=== PATIENT | male | born 1970 | race Caucasian/White ===

== ENCOUNTER 2018-08-18 10:44 | Outpatient (REF) | payer OTHER, SELFPAY ==
[2018-08-18 21:13] LABS: Anion Gap 8.4 mmol/L (3-11); BUN 21 mg/dL (7-18); CO2 26.6 mmol/L (21.0-32.0); Chloride 100 mmol/L (98-107); Glucose 261 mg/dL (70-100); Potassium 4.6 mmol/L (3.5-5.1); Sodium 135 mmol/L (136-145)
== END 2018-08-18 11:04 ==
LOC: NCHCN 10:44
PROVIDERS: PCP Nurse Practitioner Family; Visit Provider Nurse Practitioner Family
DX: E11.9 Type 2 diabetes mellitus without complications (principal); E03.9 Hypothyroidism, unspecified; I10 Essential (primary) hypertension
CPT/HCPCS: 80048; 84443

== ENCOUNTER 2019-08-10 09:44 | Outpatient (REF) | payer OTHER, SELFPAY ==
[2019-08-10 21:31] LABS: ALT 50 U/L (16-63); AST 27 U/L (15-37); Albumin 3.8 g/dL (3.4-5.0); Alkaline Phosphatase 100 U/L (46-116); Anion Gap 9.6 mmol/L (3-11); BUN 15 mg/dL (7-18); Bilirubin, Total 0.4 mg/dL (0.2-1.0); CO2 28.4 mmol/L (21.0-32.0); CREATININE 0.94 mg/dL (0.70-1.30); Calcium 8.9 mg/dL (8.5-10.1); Chloride 100 mmol/L (98-107); Glucose 207 mg/dL (74-106); Magnesium 1.4 mg/dL (1.8-2.4); Potassium 5.3 mmol/L (3.5-5.1); Sodium 138 mmol/L (136-145); TSH 1.35 uIU/mL (0.36-3.74); Total Protein 7.1 g/dL (6.4-8.2); Vitamin B12 329 pg/mL (193-986)
== END 2019-08-10 10:04 ==
LOC: NCHCN 09:44
PROVIDERS: PCP Nurse Practitioner Family; Visit Provider Nurse Practitioner Family
DX: E11.40 Type 2 diabetes mellitus with diabetic neuropathy, unspecified (principal); I10 Essential (primary) hypertension; F10.20 Alcohol dependence, uncomplicated; K21.9 Gastro-esophageal reflux disease without esophagitis; E03.9 Hypothyroidism, unspecified
CPT/HCPCS: 80053; 82607; 83735; 84443

== ENCOUNTER 2019-11-27 13:59 | Outpatient (REF) | payer OTHER, SELFPAY ==
[2019-11-27 21:37] LABS: COMMENT (LAB VIEW ONLY) 123.05 mg/dL; Microalb ug/mg Crea 39.5 ug/mg Cr
== END 2019-11-27 14:19 ==
LOC: NCHCN 13:59
PROVIDERS: PCP Nurse Practitioner Family; Visit Provider Nurse Practitioner Family
DX: E11.9 Type 2 diabetes mellitus without complications (principal); I10 Essential (primary) hypertension
CPT/HCPCS: 82043; 82570

== ENCOUNTER 2020-09-02 10:27 | Outpatient (REF) | payer OTHER, SELFPAY ==
[2020-09-02 14:56] LABS: ALT 46 U/L (16-63); AST 20 U/L (15-37); Albumin 3.8 g/dL (3.4-5.0); Alkaline Phosphatase 82 U/L (46-116); Anion Gap 7.4 mmol/L (3-11); BUN 17 mg/dL (7-18); Bilirubin, Total 0.4 mg/dL (0.2-1.0); CO2 27.6 mmol/L (21.0-32.0); Calculated LDL 56 mg/dL (<100); Chloride 100 mmol/L (98-107); Cholesterol 128 mg/dL (<200); Glucose 170 mg/dL (74-106); HDL Cholesterol 45 mg/dL (40-60); Magnesium 1.3 mg/dL (1.8-2.4); Potassium 5.2 mmol/L (3.5-5.1); Sodium 135 mmol/L (136-145); TSH 0.36 uIU/mL (0.36-3.74); Total Protein 6.8 g/dL (6.4-8.2); Triglyceride 138 mg/dL (<150); Vitamin B12 205 pg/mL (193-986)
== END 2020-09-02 10:28 | disposition home or self-care (01) ==
LOC: NCHCN 10:27
PROVIDERS: PCP Nurse Practitioner Family; Visit Provider Nurse Practitioner Family
DX: I10 Essential (primary) hypertension (principal); E83.42 Hypomagnesemia; Z79.899 Other long term (current) drug therapy
CPT/HCPCS: 80053; 80061; 82607; 83735; 84443

== ENCOUNTER 2021-08-29 14:37 | Outpatient (REF) | payer OTHER, SELFPAY ==
[2021-08-29 21:09] LABS: HGB 10.2 g/dL (13.5-17.5); MCV 66.7 fL (80-95); MPV 10.4 fL (8.0-11.0); Platelet Count 321 10^3/uL (130-400); RDW-SD 37.7 fL; WBC 9.24 10^3/uL (4.4-10.8)
[2021-08-29 21:13] LABS: Prothrombin Time 9.6 sec (9.3-11.0)
[2021-08-29 21:39] LABS: Hemoglobin A1C 6.3 % (<5.7)
[2021-08-29 22:05] LABS: ALT 38 U/L (16-63); AST 18 U/L (15-37); Albumin 3.9 g/dL (3.4-5.0); Alkaline Phosphatase 85 U/L (46-116); Anion Gap 10.2 mmol/L (3-11); BUN 19 mg/dL (7-18); Bilirubin, Total 0.3 mg/dL (0.2-1.0); CO2 26.8 mmol/L (21.0-32.0); CREATININE 1.1 mg/dL (0.70-1.30); Chloride 100 mmol/L (98-107); Glucose 163 mg/dL (74-106); Magnesium 1.4 mg/dL (1.8-2.4); Potassium 4.9 mmol/L (3.5-5.1); Sodium 137 mmol/L (136-145); TSH 0.64 uIU/mL (0.36-3.74); Total Protein 6.8 g/dL (6.4-8.2); Vitamin B12 284 pg/mL (193-986)
== END 2021-08-29 14:38 | disposition home or self-care (01) ==
LOC: NCHCN 14:37
PROVIDERS: PCP Nurse Practitioner Family; Visit Provider Nurse Practitioner Family
DX: E11.9 Type 2 diabetes mellitus without complications (principal); I10 Essential (primary) hypertension; E83.42 Hypomagnesemia; F10.20 Alcohol dependence, uncomplicated; K21.9 Gastro-esophageal reflux disease without esophagitis; E03.9 Hypothyroidism, unspecified; Z51.81 Encounter for therapeutic drug level monitoring
CPT/HCPCS: 80053; 85027; 82607; 83036; 83735; 84443; 85610

== ENCOUNTER 2021-09-01 20:01 | Outpatient (REF) | payer OTHER, SELFPAY ==
[2021-09-01 16:06] LABS: COMMENT (LAB VIEW ONLY) 100.37 mg/dL
== END 2021-09-01 20:02 | disposition home or self-care (01) ==
LOC: NCHCN 20:01
PROVIDERS: PCP Nurse Practitioner Family; Visit Provider Nurse Practitioner Family
DX: E11.9 Type 2 diabetes mellitus without complications (principal); I10 Essential (primary) hypertension; E03.9 Hypothyroidism, unspecified; E83.42 Hypomagnesemia; K21.9 Gastro-esophageal reflux disease without esophagitis
CPT/HCPCS: 82043; 82570

== ENCOUNTER 2021-09-12 13:25 | Outpatient (REF) | payer OTHER, SELFPAY ==
[2021-09-12 21:53] LABS: Ferritin 82 ng/mL (26-388); Vitamin B12 320 pg/mL (193-986)
[2021-09-12 22:11] LABS: Iron 50 ug/dL (65-175); Total Iron Binding Capacity 330 ug/dL (250-450); Transferrin Sat 15 % (20-55)
[2021-09-15 12:43] LABS: IgA 203 mg/dL (85-499); Interpretation (See Note); Tissue Transglutaminase IgA <1.2 U/mL (<4.0)
== END 2021-09-12 13:26 | disposition home or self-care (01) ==
LOC: NCHCN 13:25
PROVIDERS: PCP Nurse Practitioner Family; Visit Provider Nurse Practitioner Family
DX: D64.9 Anemia, unspecified (principal)
CPT/HCPCS: 82784; 83516; 82607; 82728; 82746; 83540; 83550

== ENCOUNTER 2022-04-09 18:23 | Outpatient (REF) | payer OTHER, SELFPAY ==
[2022-04-09 14:49] LABS: Abs Immature Grans 0.04 10^3/uL (0.0-0.06); Absolute Basophil Count 0.07 10^3/uL (0.0-0.2); Absolute Lymphocyte Count 1.94 10^3/uL (1.2-3.4); Absolute Neutrophil Count 8.74 10^3/uL (1.2-6.7); Basophils % 0.6; Eosinophils % 2.1; HCT 34.6 % (40.0-50.0); HGB 10.3 g/dL (13.5-17.5); Immature Grans % 0.3; MCH 19.7 pg (27.0-33.0); MCHC 29.8 % (32.0-36.0); MCV 66 fL (80-95); Monocytes % 8.8; Neutrophils % 72.2; Platelet Count 341 10^3/uL (130-400); RBC 5.24 10^6/uL (4.36-5.78); RDW 15.8 % (11.8-14.1); RDW-SD 35.9 fL; WBC 12.11 10^3/uL (4.4-10.8)
[2022-04-09 15:03] LABS: Iron 57 ug/dL (65-175); Total Iron Binding Capacity 335 ug/dL (250-450); Transferrin Sat 17 % (20-55)
[2022-04-09 15:06] LABS: Absolute Eosinophil Count 0.25 10^3/uL (0.0-0.7); Absolute Monocyte Count 1.07 10^3/uL (0.1-0.8)
[2022-04-09 15:07] LABS: Basophilic Stippling Present; Hemoglobin A1C 6.2 % (<5.7); Hypochromasia 1+; Microcytosis 2+; Polychromasia Present
[2022-04-09 15:12] LABS: ALT 27 U/L (16-63); AST 20 U/L (15-37); Albumin 4.1 g/dL (3.4-5.0); Alkaline Phosphatase 83 U/L (46-116); Anion Gap 7.5 mmol/L (3-11); BUN 25 mg/dL (7-18); Bilirubin, Total 0.5 mg/dL (0.2-1.0); CO2 27.5 mmol/L (21.0-32.0); CREATININE 1.1 mg/dL (0.70-1.30); Calcium 9.7 mg/dL (8.5-10.1); Chloride 102 mmol/L (98-107); Estimated GFR 80.77 (mL/min/1.73m2); Ferritin 74 ng/mL (26-388); Glucose 85 mg/dL (74-106); Magnesium 1.4 mg/dL (1.8-2.4); Potassium 4.7 mmol/L (3.5-5.1); Sodium 137 mmol/L (136-145); TSH 1.18 uIU/mL (0.36-3.74); Total Protein 7.5 g/dL (6.4-8.2)
== END 2022-04-09 18:24 | disposition home or self-care (01) ==
LOC: NCHCN 18:23
PROVIDERS: PCP Nurse Practitioner Family; Visit Provider Nurse Practitioner Family
DX: E11.9 Type 2 diabetes mellitus without complications (principal); I10 Essential (primary) hypertension; D50.9 Iron deficiency anemia, unspecified; E03.9 Hypothyroidism, unspecified; E83.42 Hypomagnesemia
CPT/HCPCS: 80053; 82728; 83036; 83540; 83550; 83735; 84443; 85025

== ENCOUNTER 2022-05-29 16:03 | Outpatient (REF) | payer OTHER, SELFPAY ==
[2022-05-29 17:23] LABS: Iron 70 ug/dL (65-175); Total Iron Binding Capacity 301 ug/dL (250-450); Transferrin Sat 23 % (20-55)
== END 2022-05-29 16:04 | disposition home or self-care (01) ==
LOC: NCHCN 16:03
PROVIDERS: PCP Nurse Practitioner Family; Visit Provider Nurse Practitioner Family
DX: D50.9 Iron deficiency anemia, unspecified (principal); F10.20 Alcohol dependence, uncomplicated
CPT/HCPCS: 85027; 83540; 83550; 85610

== ENCOUNTER 2023-03-01 18:56 | Outpatient (REF) | payer OTHER, SELFPAY ==
[2023-03-01 14:42] LABS: Abs Immature Grans 0.03 10^3/uL (0.0-0.06); Absolute Basophil Count 0.05 10^3/uL (0.0-0.2); Absolute Eosinophil Count 0.15 10^3/uL (0.0-0.7); Absolute Lymphocyte Count 1.41 10^3/uL (1.2-3.4); Absolute Monocyte Count 0.53 10^3/uL (0.1-0.8); Basophils % 0.7; HCT 32.6 % (40.0-50.0); HGB 9.7 g/dL (13.5-17.5); Immature Grans % 0.4; Lymphocytes % 18.9; MCH 19.7 pg (27.0-33.0); MCHC 29.8 % (32.0-36.0); MCV 66 fL (80-95); Monocytes % 7.1; Neutrophils % 70.9; RBC 4.92 10^6/uL (4.36-5.78); RDW 16.3 % (11.8-14.1); RDW-SD 37.5 fL; WBC 7.47 10^3/uL (4.4-10.8)
[2023-03-01 14:53] LABS: Iron 125 ug/dL (65-175); Total Iron Binding Capacity 321 ug/dL (250-450); Transferrin Sat 39 % (20-55)
[2023-03-01 14:59] LABS: Diff Comment Diff Reviewed; Microcytosis 2+
[2023-03-01 15:07] LABS: Anion Gap 11.3 mmol/L (3-11); BUN 25 mg/dL (7-18); CO2 23.7 mmol/L (21.0-32.0); CREATININE 1.3 mg/dL (0.70-1.30); Calcium 9.4 mg/dL (8.5-10.1); Chloride 100 mmol/L (98-107); Estimated GFR 65.69 (mL/min/1.73m2); Ferritin 130 ng/mL (26-388); Glucose 241 mg/dL (74-106); Magnesium 1.3 mg/dL (1.8-2.4); Potassium 5.1 mmol/L (3.5-5.1); Sodium 135 mmol/L (136-145); TSH 0.77 uIU/mL (0.36-3.74)
== END 2023-03-01 18:57 | disposition home or self-care (01) ==
LOC: NCHCN 18:56
PROVIDERS: PCP Nurse Practitioner Family; Visit Provider Nurse Practitioner Family
DX: I10 Essential (primary) hypertension (principal); E66.9 Obesity, unspecified; D50.9 Iron deficiency anemia, unspecified; E83.42 Hypomagnesemia
CPT/HCPCS: 80048; 82728; 83540; 83550; 83735; 84443; 85025